=== PATIENT | male | born 1995 | race Two or more races ===

== ENCOUNTER 2018-05-18 03:42 | Emergency (ER) | payer SELFPAY ==
[~2018-05-18] VITALS: Ht 177.8 cm; Wt 110.7 kg
[2018-05-18 03:45] VITALS: BP 166/118
== END 2018-05-18 04:11 | disposition home or self-care (01) ==
LOC: ED 04:05
DX: H60.321 Hemorrhagic otitis externa, right ear (principal); I10 Essential (primary) hypertension; W22.8XXA Striking against or struck by other objects, initial encounter; Y93.89 Activity, other specified; Y99.8 Other external cause status; Y92.89 Other specified places as the place of occurrence of the external cause
CPT/HCPCS: 99281